=== PATIENT | female | born 1955 | race Two or more races ===

== ENCOUNTER 2025-02-11 14:02 | Outpatient (CLI) | payer MEDICAID ==
[2025-02-11 14:50] LABS: Urine Amorphous Crystal FEW /hpf (None Seen); Urine Protein, UAD Negative (Negative)
[2025-02-11 14:51] LABS: Hematocrit 46.8 % (36.0-46.0); Hemoglobin 15.8 g/dL (12.2-16.2); Mean Corpuscular Hemoglobin 32.7 pg (28.0-32.0); Mean Corpuscular Volume 96.8 fL (80.0-100.0); Nucleated Red Blood Cells % 0.2 %
[2025-02-11 15:00] LABS: Alanine Aminotransferase 30 U/L (7-40); Albumin 3.6 g/dL (3.2-4.8); Anion Gap 7 (5-15); BUN/Creatinine Ratio 6.4 (10.0-20.0); Calcium 9.1 mg/dL (8.7-10.4); Carbon Dioxide 28 mmol/L (20-31); Chloride 105 mmol/L (98-107); Cholesterol 144 mg/dL (< 200); HDL Cholesterol 51 mg/dL (40-59); Potassium 4.0 mmol/L (3.5-5.1); Sodium 140 mmol/L (136-145); Triglycerides 96 mg/dL (< 150)
[2025-02-11 15:01] LABS: Bilirubin, Total 1.0 mg/dL (0.2-1.0)
[2025-02-11 15:07] LABS: Alkaline Phosphatase 189 U/L (46-116); Blood Urea Nitrogen 6 mg/dL (9-23); Glucose 126 mg/dL (74-106); Total Protein 8.6 g/dL (5.7-8.2)
[2025-02-11 15:18] LABS: Uric Acid 5.0 mg/dL (3.1-7.8)
== END 2025-02-11 17:00 | disposition home or self-care (01) ==
LOC: LAB 14:02
PROVIDERS: ATTEND Internal Medicine
DX: E78.49 Other hyperlipidemia (principal); E61.2 Magnesium deficiency; E79.0 Hyperuricemia without signs of inflammatory arthritis and tophaceous disease; E55.9 Vitamin D deficiency, unspecified; R82.79 Other abnormal findings on microbiological examination of urine; R82.90 Unspecified abnormal findings in urine; R82.998 Other abnormal findings in urine; R84.6 Abnormal cytological findings in specimens from respiratory organs and thorax; R68.89 Other general symptoms and signs; R73.09 Other abnormal glucose
CPT/HCPCS: 36415; 80053; 80061; 81001; 82306; 82607; 82746; 83036; 84443; 84550; 85025; 87086